=== PATIENT | female | born 1975 | race African-American/Black ===

== ENCOUNTER 2017-06-03 23:46 | Emergency (ER) | payer SELFPAY ==
[2017-06-04 01:43] LABS: #Basophils 0.1 thou/uL (0.0-0.2); #Eosinphils 0.2 thou/uL (0.0-0.7); #Lymphocytes 3.1 thou/uL (1.20-3.40); #Monocytes 0.5 thou/uL (0.11-0.59); #Neutrophils 3.3 thou/uL (1.40-6.50); %Basophils 1.4 % (0.0-1.0); %Eosinophils 2.3 % (0.0-10.0); %Lymphocytes 43.4 % (21.0-51.0); %Monocytes 6.4 % (0.0-10.0); Hematocrit 37.7 % (36.0-47.0); Mean Platelet Volume 7.4 fL (7.4-10.4); Red Blood Cell (RBC) Count 4.23 mill/uL (4.20-5.40); White Blood Cell (WBC) Count 7.1 thou/uL (4.8-10.8)
[2017-06-04 02:06] LABS: ALT (SGPT) 10 U/L (8-55); AST (SGOT) 14 U/L (5-34); Alkaline Phosphatase 66 U/L (40-150); Anion Gap 13 mmol/L (10-20); BUN (Urea Nitrogen) 12 mg/dL (7.0-18.7); Bilirubin, Total 0.2 mg/dL (0.2-1.2); CK (CPK) 114 U/L (29-168); Calc. Creatinine Clearance 0 mL/min (70-130); Calcium 8.7 mg/dL (7.8-10.44); Carbon Dioxide 25 mmol/L (22-29); Chloride 107 mmol/L (98-107); Estimated GFR-MDRD Greater than 90; Globulin 3.5 g/dL (2.4-3.5); Protein, Total 7.2 g/dL (6.0-8.3)
[2017-06-04 02:10] LABS: Troponin I Less than 0.010 ng/mL (< 0.028)
--- NOTE | 2017-06-10 15:35 | EKG ---
Test Reason : CHEST PAIN Blood Pressure : / mmHG Vent. Rate : 073 BPM Atrial Rate : 073 BPM P-R Int : 148 ms QRS Dur : 082 ms QT Int : 410 ms P-R-T Axes : 057 015 045 degrees QTc Int : 451 ms Normal sinus rhythm with sinus arrhythmia Normal ECG Confirmed by TIAN NOE D.O. ([id number]), science editor YESENIA MODI ([id number]) on 06/10/2017 3:35:25 PM Referred By: Confirmed By:TIAN NOE D.O.
== END 2017-06-04 | disposition home or self-care (01) ==
LOC: ERS 23:46
DX: F43.0 Acute stress reaction (principal); J45.909 Unspecified asthma, uncomplicated; I10 Essential (primary) hypertension; F17.210 Nicotine dependence, cigarettes, uncomplicated
CPT/HCPCS: 36415; 80053; 82550; 82553; 84484; 85025; 93005

== ENCOUNTER 2017-06-30 06:48 | Outpatient (CLI) | payer OTHER, SELFPAY | END 2017-06-30 06:49 | disposition home or self-care (01) | LOC: BICMAMMO 06:48 | PROVIDERS: ATTEND Family Medicine | DX: N63.0 Unspecified lump in unspecified breast (principal) | CPT/HCPCS: 77066; G0279 ==

== ENCOUNTER 2017-08-07 12:51 | Observation (INO) | payer OTHER, SELFPAY ==
--- NOTE | 2017-08-07 13:18 | RAD ---
AP VIEW OF THE CHEST: INDICATIONS: A 41-year-old female with a history of chest pain. COMPARISON: Prior exam dated 08/13/2016. FINDINGS: The costophrenic angles are excluded. The visualized lung are clear. The cardiomediastinal silhouet te is normal. No acute osseous abnormality is evident. IMPRESSION: 1. Limitation of exam. 2. No definite acute cardiopulmonary abnormality. POS: MARIYA
[2017-08-07 13:27] LABS: Hemoglobin 13.7 g/dL (12.0-16.0); Mean Corpuscular HGB CONC 32.9 g/dL (32.0-36.0); Mean Corpuscular Hemoglobin 28.6 pg (27.0-31.0); Mean Corpuscular Volume 86.7 fl (81.0-99.0); Mean Platelet Volume 7.6 fL (7.4-10.4); Platelet Count 255 thou/uL (130-400); RBC Distribution Width 12.5 % (11.5-14.5); Red Blood Cell (RBC) Count 4.79 mill/uL (4.20-5.40); White Blood Cell (WBC) Count 5.4 thou/uL (4.8-10.8)
[2017-08-07 13:45] LABS: Lymphocytes 49 % (21-51); MDiff Complete? YES; Monocytes 6 % (0-10); Neutrophil 45 % (42-75); PLT Morphology Comment Appears Adequate
[2017-08-07 13:53] LABS: CKMB 0.5 ng/mL (0-6.6); Troponin I Less than 0.010 ng/mL (< 0.028)
[2017-08-07 13:54] LABS: ALT (SGPT) 7 U/L (8-55); AST (SGOT) 15 U/L (5-34); Albumin 4.1 g/dL (3.5-5.0); Alkaline Phosphatase 55 U/L (40-150); Anion Gap 11 mmol/L (10-20); BUN (Urea Nitrogen) 13 mg/dL (7.0-18.7); Bilirubin, Total 0.3 mg/dL (0.2-1.2); CK (CPK) 121 U/L (29-168); Calc. Creatinine Clearance 0 mL/min (70-130); Calcium 9.5 mg/dL (7.8-10.44); Carbon Dioxide 29 mmol/L (22-29); Chloride 100 mmol/L (98-107); Estimated GFR-MDRD 83; Globulin 3.9 g/dL (2.4-3.5); Glucose 104 mg/dL (70-105); Potassium 3.5 mmol/L (3.5-5.1); Sodium 136 mmol/L (136-145)
[2017-08-07] MEDS ORDERED: Nitroglycerin 0.4 MG TAB (25 Tab Bottle) ONE (15:37)
[2017-08-07 16:49] LABS: Troponin I 0.023 ng/mL (< 0.028)
[2017-08-07] MEDS ORDERED: Ondansetron ODT 4 MG TAB SL PRN (17:31)
[2017-08-07] MEDS ORDERED: Ondansetron HCl/PF 4 MG/2 ML Vial IVP PRN (17:31)
[2017-08-07] MEDS ORDERED: Acetaminophen 325 MG TAB PO PRN ×2 (17:31→17:48)
[2017-08-07 17:39] VITALS: BMI 37.3
[2017-08-07] MEDS ORDERED: Zolpidem Tartrate 5 MG TAB PO PRN (17:48)
[2017-08-07] MEDS ORDERED: Nitroglycerin 0.4 MG TAB (25 Tab Bottle) PO PRN (17:48)
[2017-08-07] MEDS ORDERED: Ondansetron ODT 4 MG TAB PO PRN (17:48)
[2017-08-07] MEDS ORDERED: Labetalol HCl 100 MG/20 ML VIAL SLOW IVP PRN (17:48)
[2017-08-07] MEDS ORDERED: Bisacodyl 5 MG TAB PO PRN (17:48)
[2017-08-07] MEDS ORDERED: Nicotine 14 MG PATCH TD SCH (18:00)
[2017-08-07] MEDS: HYDROcodone/Acetaminophen 5/325 mg Tablet PO PRN (18:13)
--- NOTE | 2017-08-07 19:41 | HP-2 ---
CODE STATUS: FULL. PRIMARY CARE PHYSICIAN: Sunshine Monroy D.O., [facility]. ATTENDING: Dr. Padilla RESIDENT: Magalys Márquez DO HISTORIAN: Patient. CHIEF COMPLAINT: Chest pain. HISTORY OF PRESENT ILLNESS: Patient is a 41-year-old female with past medical history of hypertensio n, hyperlipidemia, tobacco abuse, presents with chest pain, onset 30 minutes prior to arrival after h er and her were arguing. She describes chest pain as tightness and squeezing. It lasted for a couple of minutes, but then began to dull. Pain initially was 10/10 and now it is better, but sti ll there. She reports wheezing and coughing episode at that time. The patient does have a history o f asthma and reports this is not like past asthma exacerbation. The patient also reports history of panic attacks and describes this did not feel like a panic attack either. She reports that coughing makes the pain worse and pain was made better just by being in the hospital. The patient also endors es a small breast lump in her left rib cage that worsens the pain. It has been worked up on 06/30/20 17 with a negative mammogram and ultrasound. She also reports constipation that is chronic, ten-year history where she has to use multiple suppositories to have a bowel movement. In the ER, she was gi hunter nitro 0.4 mg sublingual and aspirin 325 mg. PAST MEDICAL HISTORY: Asthma, hypertension, hyperlipidemia, anxiety, and osteoarthritis. PAST SURGICAL HISTORY: Left ACL repair and recent dental surgery, 2 days ago. ALLERGIES: No known drug allergies. MEDICATIONS: 1. Amoxicillin 500 mg t.i.d. 2. Pana 5/325 mg q.4 h. p.r.n. 3. HCTZ 12.5 mg daily. 4. Ambien 5 mg at bedtime. 5. Suppositories, unknown dosages or names. FAMILY HISTORY: A sister with diabetes. SOCIAL HISTORY: This patient is a smoker. She smokes 2 packs per day for the last 20 years. Denies alcohol and drug use. REVIEW OF SYSTEMS: A 12 point review of systems performed and found to be positive, unless otherwise mentioned in the HPI. Other pertinent negatives and positives listed below. Negative for shortness of breath. Negative for nausea, vomiting. Negative for palpitations. Negative for abdominal pain. Admits to cough, chest pain, and anxiety. Negative for recent illnesses including fever, chills, s ore throat, rhinorrhea and nasal congestion. PHYSICAL EXAMINATION: VITAL SIGNS: Blood pressure 142/101, pulse 77, respiratory rate 18, T-max 98.4, pulse ox 99% on room air. Current weight 115.67 kilograms. GENERAL: The patient is alert and oriented x4, in no acute distress, well-developed, well-nourished, obese, and appropriately interactive. EYES: PERRLA. EOMI. ENT: Recent tooth infection evident in oropharynx, otherwise normal. NECK: Supple, without lymphadenopathy, thyromegaly or bruit. CARDIOVASCULAR: Regular rate and rhythm, no murmurs, 2+ radial pulses, 2+ pedal pulses. Patient newton s have mild tenderness to palpation in left chest area. RESPIRATORY: Normal effort, no retractions, clear to auscultation bilaterally. SKIN: Warm and dry. No cyanosis. Does have a small nodule about 2-4 mm in size in the left rib cag e area, likely lipoma. ABDOMEN: Soft, nontender, bowel sounds positive. No mass or distention. EXTREMITIES: No clubbing, cyanosis or edema. MUSCULOSKELETAL: Structure within normal limits, tone within normal limits. NEUROLOGIC: No focal deficits. PSYCHIATRIC: Appropriate. CURRENT LABORATORY DATA: CBC: 5.4, 13.7, 41.5, 255. CMP: 136, 3.5, 100, 29, 13, 0.91, 104, GFR 83, calcium 9.5, total protein 8.0, albumin 4.1, AST 15, ALT 7, alkaline phosphatase 55, total bilirubin 0.3. CK is 121, CK-MB 0.5, troponin less than 0.010. EKG shows normal sinus rhythm. Chest x-ray reveals no acute findings. ASSESSMENT AND PLAN: 1. Atypical chest pain. The patient has a heart score of 2. We will trend troponins and with risk factors including smoking history, hypertension, hyperlipidemia, and obesity, we will do treadmill st ress test. We will give nitro p.r.n. We will try GI cocktail. We will assess for other risk factor s with A1c, TSH, magnesium and phosphatase. 2. Constipation, chronic. We will give Colace b.i.d., lactulose p.r.n. The patient will need to fo llow up outpatient to further evaluate this. 3. Hypertension. We will continue hydrochlorothiazide 12.5 mg daily. Patient did take medication t his morning and continues to have high blood pressure. We will continue to evaluate and if consisten tly elevated, may need to increase to b.i.d. dosing. IV labetalol p.r.n. 4. Hyperlipidemia. The patient reports she has been diagnosed with this but is not on any medicatio n. We will get a fasting lipid panel to evaluate. 5. Tobacco abuse. We will give nicotine patch. DISPOSITION AND LENGTH OF HOSPITAL STAY: 1-2 days. Symptomatic medications will be provided. History and physical exam as well as management was discussed with Dr. Padilla.
[2017-08-07 19:45] LABS: Hemoglobin A1c 5.2 % (4.0-6.0)
[2017-08-07 19:56] LABS: Troponin I Less than 0.010 ng/mL (< 0.028)
[2017-08-07] MEDS ORDERED: Lidocaine 2% Viscous Solution 10 ML, Aluminum & Magnesium Hydroxide 30 ML SSW SCH ×2 (20:00)
[2017-08-07] MEDS: Docusate 100 MG CAP PO SCH (20:26)
[2017-08-07] MEDS: AMOXicillin 250 MG CAP PO SCH (20:26)
[2017-08-07] MEDS: Ibuprofen 600 MG TAB PO PRN (20:33)
[2017-08-07] MEDS ORDERED: Zolpidem Tartrate 5 MG TAB PO SCH (21:00)
[2017-08-08] MEDS: HYDROcodone/Acetaminophen 5/325 mg Tablet PO PRN ×2 (03:06→09:47)
[2017-08-08] MEDS: Ibuprofen 600 MG TAB PO PRN (05:17)
[2017-08-08 06:18] LABS: Cardiac Risk 4.5 (Less than 4.5)
--- NOTE | 2017-08-08 06:29 | PDOC.FM ---
- Subjective Subjective: Patient is lying in bed comfortably. Reports no chest pain. No acute events overnight. Patient reports she wants to quit smoking using nicotine patches. - Objective MAR Reviewed: Yes Vital Signs & Weight: Vital Signs (12 hours) Temp Pulse Resp BP BP Pulse Ox 08/08/17 03:06 98.6 F 74 14 150/99 H 99 08/08/17 03:05 98.6 F 74 14 150/99 H 99 08/07/17 19:23 98.7 F 71 15 136/90 99 08/07/17 19:10 98.7 F 71 15 Weight Weight 111.244 kg I&O: 08/06/17 08/07/17 08/08/17 06:59 06:59 06:59 Intake Total 360 Balance 360 Result Diagrams: 08/07/17 13:06 08/07/17 13:06 <Magalys Márquez - Last Filed: 08/08/17 08:45> - Objective Vital Signs & Weight: Vital Signs (12 hours) Temp Pulse Resp BP BP Pulse Ox 08/08/17 08:04 98.3 F 62 16 119/79 98 08/08/17 08:00 98.3 F 62 16 08/08/17 03:06 98.6 F 74 14 150/99 H 99 08/08/17 03:05 98.6 F 74 14 150/99 H 99 Weight Weight 111.244 kg I&O: 08/07/17 08/08/17 08/09/17 06:59 06:59 06:59 Intake Total 360 Balance 360 Result Diagrams: 08/07/17 13:06 08/07/17 13:06 <Tra Covarrubias - Last Filed: 08/08/17 10:17> Phys Exam - Physical Examination Constitutional: NAD HEENT: moist MMs Respiratory: no wheezing, no rales, no rhonchi, clear to auscultation bilateral Cardiovascular: RRR, no significant murmur Gastrointestinal: soft, non-tender Musculoskeletal: no edema, pulses present Psychiatric: normal affect, A&O x 3 <Magalys Márquez - Last Filed: 08/08/17 08:45> Dx/Plan (1) Atypical chest pain Code(s): R07.89 - OTHER CHEST PAIN Status: Acute (2) HTN (hypertension) Code(s): I10 - ESSENTIAL (PRIMARY) HYPERTENSION Status: Acute (3) Constipation Code(s): K59.00 - CONSTIPATION, UNSPECIFIED Status: Acute (4) Tobacco abuse Code(s): Z72.0 - TOBACCO USE Status: Acute (5) Asthma Code(s): J45.909 - UNSPECIFIED ASTHMA, UNCOMPLICATED Status: Acute (6) Anxiety Code(s): F41.9 - ANXIETY DISORDER, UNSPECIFIED Status: Acute (7) Insomnia Code(s): G47.00 - INSOMNIA, UNSPECIFIED Status: Acute (8) Other dental procedure status Code(s): Z98.818 - OTHER DENTAL PROCEDURE STATUS Status: Acute - Plan Plan: Atypical Chest Pain - stress this morning - cardiac enzymes negative x3 - likely related to anxiety - no need for statin therapy with ASCVD risk of 6.1% - d/c home if negative stress HTN - continue home HCTZ and monitor - IV Labetalol for SBP > 180 Anxiety - patient reports normally well controlled with this being a rare event - not on any meds - educated on healthy coping habits for stress Constipation - Colace BID - prn Lactulose Recent Tooth Extraction - Continue Amoxicillin Asthma - ProAir prn Tobacco Abuse - counseled on cessation - will prescribe nicotine patches at discharge with follow up in 1 month for tobacco cessation follow up <Magalys Márquez - Last Filed: 08/08/17 08:45> Attending Addendum - Attending Addendum I personally evaluated the patient and discussed the management with Dr. Márquez I agree with the History, Examination, Assessment and Plan documented above with any addition or exceptions noted below. Will follow up with exercise ECG stress test this morning, HEART score of 2, low risk. Plan to discharge home if normal. <Tra Covarrubias - Last Filed: 08/08/17 10:17>
[2017-08-08] MEDS ORDERED: Hydrochlorothiazide 25 MG TAB PO SCH (09:00)
[2017-08-08] MEDS ORDERED: PROVENTIL INHALER 6.7 G (200 INHALATIONS) INH SCH ×2 (09:00→10:30)
[2017-08-08] MEDS ORDERED: Aspirin 325 MG TAB PO SCH (09:00)
[2017-08-08] MEDS: AMOXicillin 250 MG CAP PO SCH (09:45)
[2017-08-08] MEDS: Docusate 100 MG CAP PO SCH (09:46)
[2017-08-08 12:05] VITALS: BP 125/78; TEMP 98.2
== END 2017-08-08 13:07 | disposition home or self-care (01) ==
LOC: ERS 12:51 → 2SW 15:46
PROVIDERS: ADMIT Family Medicine; ATTEND Family Medicine
DX: R07.89 Other chest pain (principal); K59.09 Other constipation; I10 Essential (primary) hypertension; E78.5 Hyperlipidemia, unspecified; F17.210 Nicotine dependence, cigarettes, uncomplicated; J45.909 Unspecified asthma, uncomplicated; F41.9 Anxiety disorder, unspecified; M19.90 Unspecified osteoarthritis, unspecified site; G47.00 Insomnia, unspecified; Z79.2 Long term (current) use of antibiotics; Z79.899 Other long term (current) drug therapy; Z83.3 Family history of diabetes mellitus; Z98.890 Other specified postprocedural states
CPT/HCPCS: 36415; 71045; 80053; 80061; 82550; 82553; 83036; 84443; 84484; 85025; 93005; 93017; 94760; 99406; G0378

== ENCOUNTER 2019-01-09 07:28 | Day surgery (SDC) | payer BC ==
[2019-01-08 15:45] VITALS: BMI 41.9
[2019-01-09] MEDS ORDERED: Fentanyl 250 MCG/5 ML VIAL ONE (07:34)
[2019-01-09] MEDS ORDERED: Lidocaine 4% Topical Sol 50 ML BOT ONE (07:34)
[2019-01-09 08:29] LABS: BHCG - Serum Negative (NEGATIVE); Pregs Control Background? CLEAR/WHITE (CLR/WHITE); Pregs Control Bar Appear? YES (CONTROL BAR)
[2019-01-09] MEDS ORDERED: Labetalol HCl 100 MG/20 ML VIAL ONE ×2 (09:17→16:02)
[2019-01-09] MEDS ORDERED: Fentanyl 100 MCG/2 ML VIAL ONE ×2 (09:17→10:15)
[2019-01-09] MEDS ORDERED: hydrALAZINE 20 MG/ML VIAL ONE (09:43)
[2019-01-09] MEDS ORDERED: Morphine 4 MG/ML VIAL ONE (10:49)
[2019-01-09] MEDS ORDERED: Morphine 2 MG/ML SYRINGE ONE (11:02)
[2019-01-09] MEDS ORDERED: Hydrocodone-Acetamin 15 ML UDCUP ONE (11:32)
[2019-01-09] MEDS ORDERED: Promethazine HCl 25 MG/ML VIAL ONE ×3 (11:40→12:26)
[2019-01-09] MEDS ORDERED: Succinylcholine Chloride 20 MG/ML 10 ml SYRINGE FS ONE (16:02)
[2019-01-09] MEDS ORDERED: Dexamethasone 20 MG/5 ML VIAL ONE (16:02)
[2019-01-09] MEDS ORDERED: Lidocaine 1% PF 5 ML VIAL ONE (16:02)
[2019-01-09] MEDS ORDERED: Ondansetron PF 4 MG/2 ML Vial ONE (16:02)
[2019-01-09] MEDS ORDERED: PROPOFOL 200 MG/20 ML VIAL ONE (16:02)
--- NOTE | 2019-01-10 10:29 | OP ---
DATE OF PROCEDURE: 01/09/2019 PREOPERATIVE DIAGNOSES: 1. Chronic adenotonsillitis. 2. Adenotonsillar hypertrophy. POSTOPERATIVE DIAGNOSES: 1. Chronic adenotonsillitis. 2. Adenotonsillar hypertrophy. PROCEDURES PERFORMED: Tonsillectomy and adenoidectomy. ESTIMATED BLOOD LOSS: 0 mL. COMPLICATIONS: None. ANESTHESIA: GETA. PROCEDURE IN DETAIL: After consent was obtained, the patient was identified, brought to the operating room, and placed on the operating table in the supine position. General endotracheal anesthesia and intravenous access were obtained and we proceeded with positioning the patient for oropharyngeal surgery. Oropharyngeal exposure was obtained with a Aicha-Jeevan mouth gag after a head drape was placed and secured with a towel clip. The Aicha-Jeevan mouth gag was then suspended from the Schneider tray and palatal elevation was achieved with a red rubber catheter. The right tonsil was addressed first. We used a curved Allis to grasp the tonsil and retract it medially as an anterior pillar incision was made. The retrotonsillar fascial plane was then established and blunt dissection was performed with the suction cautery. Blood vessels were anticipated, identified, and cauterized as they were encountered. Ultimately, dissection was carried to the posterior tonsillar pillar mucosa which was incised hemostatically, as well as the base of tongue connection. The tonsil was then passed off as a specimen and bleeding points within the tonsillar bed were cauterized under direct visualization. We subsequently turned our attention to the contralateral side, where using a similar technique, a near identical procedure was performed. Again, the tonsil was grasped and retracted medially with a curved Allis. The retrotonsillar fascial plane was established and while the anterior pillar was retracted medially. The hemostatic blunt dissection of the tonsil with a suction cautery was performed with blood vessels anticipated, identified, and cauterized as they were encountered. Again, dissection continued to the base of tongue and posterior tonsillar pillar mucosa which was incised in a hemostatic fashion. The tonsillar beds were then carefully inspected and bleeding points were identified and cauterized with a suction cautery. After this portion of the procedure, hemostasis was completely obtained. Under direct mirror visualization, we visualized the adenoid pad. Under direct mirror visualization, we removed the bulk of the adenoid tissue with the adenoid curette. We then packed the nasopharynx for an appropriate period of time with [id number] tonsillar sponges. After a period of observation, we removed the pack. Under indirect mirror visualization, we obtained hemostasis and vaporization of residual adenoid tissue with electrocautery. The patient's oral cavity was copiously irrigated with iced saline and subsequently suctioned. After completion of the procedure, the nasal cavity and oropharynx were irrigated and suctioned as were the gastric contents. The patient was then awakened and transferred to the recovery room where the patient remained in stable condition prior to discharge to Day Stay. Job ID: [id number]
== END 2019-01-09 13:36 | disposition home or self-care (01) ==
LOC: SDC 07:28
PROVIDERS: ATTEND Otolaryngology Plastic Surgery within the Head & Neck
PROC: 0CTPXZZ Resection of Tonsils, External Approach (ICD-10-PCS; principal; 2019-01-09)
PROC: 0CTQXZZ Resection of Adenoids, External Approach (ICD-10-PCS; principal; 2019-01-09)
DX: J35.03 Chronic tonsillitis and adenoiditis (principal); I10 Essential (primary) hypertension; Z87.891 Personal history of nicotine dependence; Z79.899 Other long term (current) drug therapy; Z98.890 Other specified postprocedural states
CPT/HCPCS: 84703; 85014; 88304; J0131; J0360; J1100; J2001; J2270; J2405; J2550; J2704; J3010

== ENCOUNTER 2023-11-08 05:33 | Inpatient (IN) | payer OTHER ==
[2023-11-08] MEDS ORDERED: Lidocaine 1% w/Epinephrine 1:100K 20 ML VIAL ONE (06:28)
[2023-11-08] MEDS ORDERED: Cephalexin 250 MG CAP ONE (06:28)
[2023-11-08] MEDS ORDERED: Acetaminophen 500 MG TAB ONE (06:28)
[2023-11-08] MEDS ORDERED: Bacitracin 1 PK ONE (06:28)
[2023-11-08] MEDS ORDERED: Boostrix 0.5 ML (Tdap) VIAL (>/=7 yrs of age) ONE (06:29)
[2023-11-08] MEDS ORDERED: Sodium Chloride 0.9% 100 ML ONE ×2 (08:49→13:57)
[2023-11-08] MEDS ORDERED: CEFAZOLIN 2 GM VIAL ONE ×2 (08:49→13:56)
[2023-11-08 09:03] LABS: #Basophils Less than 0.03 10x3/uL (0.0-0.2); %Basophils 0.2 % (0.0-1.0); %Eosinophils 0.4 % (0.0-10.0); %Lymphocytes 26.6 % (21.0-51.0); %Monocytes 6.2 % (0.0-10.0); %Neutrophils 66.3 % (42.0-75.0); Hematocrit 39.2 % (36.0-47.0); Hemoglobin 13.4 g/dL (12.0-16.0); Mean Corpuscular HGB CONC 34.2 g/dL (32.0-36.0); Mean Corpuscular Hemoglobin 28.8 pg (27.0-31.0); Mean Corpuscular Volume 84.1 fL (78.0-98.0); Mean Platelet Volume 9.4 fL (7.4-10.4); Platelet Count 315 10x3/uL (130-400); RBC Distribution Width 14.8 % (11.5-14.5); Red Blood Cell (RBC) Count 4.66 mill/uL (4.20-5.40)
[2023-11-08 09:52] LABS: Globulin 4.5 g/dL (2.4-3.5)
[2023-11-08 09:56] LABS: ALT (SGPT) 27 U/L (8-55); AST (SGOT) 22 U/L (5-34); Albumin 3.6 g/dL (3.5-5.0); Alkaline Phosphatase 64 U/L (40-110); Anion Gap 20 mmol/L (10-20); BUN (Urea Nitrogen) 16 mg/dL (7.0-18.7); Calc. Creatinine Clearance 0 mL/min (70-130); Carbon Dioxide 20 mmol/L (22-29); Chloride 100 mmol/L (98-107); Estimated GFR 82; Glucose 107 mg/dL (70-105); Potassium 2.9 mmol/L (3.5-5.1); Protein, Total 8.1 g/dL (6.0-8.3); Sodium 137 mmol/L (136-145)
[2023-11-08 12:00] LABS: Bilirubin, Total 0.4 mg/dL (0.2-1.2); Calcium 9.8 mg/dL (7.8-10.44)
[2023-11-08] MEDS ORDERED: fentaNYL PF 100 MCG/2 ML SYRINGE ONE ×3 (16:44→19:58)
[2023-11-08] MEDS ORDERED: Midazolam HCl 2 mg/2 ml Vial ONE (16:44)
[2023-11-08] MEDS ORDERED: Lidocaine 1% PF 5 ML VIAL ONE (16:44)
[2023-11-08] MEDS ORDERED: Dexamethasone 4 mg/ml Vial ONE (16:44)
[2023-11-08] MEDS ORDERED: Ketorolac Tromethamine 30 MG (1 mL) VIAL ONE (16:44)
[2023-11-08] MEDS ORDERED: PROPOFOL 20 ML ONE (16:44)
[2023-11-08] MEDS ORDERED: Ondansetron PF 4 MG/2 ML Vial ONE (16:44)
[2023-11-08] MEDS ORDERED: Rocuronium Bromide 10 MG/ML (10ML VIAL) ONE (16:46)
[2023-11-08] MEDS ORDERED: Bupivacaine PF 0.5% 30 ML VIAL ONE (16:47)
[2023-11-08] MEDS ORDERED: Bacitracin Zinc Ointment 30 gm TUBE ONE (16:47)
[2023-11-08] MEDS ORDERED: Ondansetron PF 4 MG/2 ML Vial IVP PRN (16:53)
[2023-11-08] MEDS ORDERED: Milk Of Magnesia 30 ML UDCUP PO PRN (16:53)
[2023-11-08] MEDS ORDERED: traMADol HCl 50 MG TAB PO PRN (16:53)
[2023-11-08] MEDS ORDERED: Acetaminophen 325 MG TAB PO PRN (16:53)
[2023-11-08] MEDS ORDERED: Promethazine HCl 25 MG/ML VIAL IM PRN ×2 (16:53→19:49)
[2023-11-08] MEDS ORDERED: fentaNYL 50 mcg/mL 1 mL Vial SLOW IVP PRN (16:53)
[2023-11-08] MEDS ORDERED: TETANUS, DIPHTHERIA TOX,ADULT (TDVAX) 0.5 ML VIAL IM ONE (16:53)
[2023-11-08] MEDS ORDERED: Bisacodyl 10 MG SUPP PR PRN (16:53)
[2023-11-08] MEDS ORDERED: Meperidine HCl/PF 25 MG (1 mL) VIAL IM PRN (16:57)
[2023-11-08] MEDS ORDERED: RENALLY ADJUST ABX FS PRN (17:00)
[2023-11-08] MEDS ORDERED: SUCCINYLCHOLINE/SOD CL,ISO/PF 200 MG/10 ML SYRINGE FS ONE (17:17)
[2023-11-08] MEDS ORDERED: Heparin 10,000 UNITS/ 10 ML VIAL ONE (17:50)
[2023-11-08] MEDS ORDERED: Hetastarch 6% 500 ML 0 ML ONE (17:50)
[2023-11-08] MEDS ORDERED: Lidocaine 2% PF 5 ML VIAL ONE (17:51)
[2023-11-08] MEDS ORDERED: SUGAMMADEX SODIUM 200 MG/2 ML VIAL ONE (19:00)
[2023-11-08] MEDS ORDERED: Ondansetron HCl/PF 4 MG/2 ML Vial IVP PRN (19:49)
[2023-11-08] MEDS: Acetaminophen/Codeine 30-300mg Tablet PO PRN (21:38)
[2023-11-08] MEDS: Aspirin 81 mg Enteric Coated Tablet PO SCH (21:39)
[2023-11-08] MEDS: CEFAZOLIN 2 GM in Sodium Chloride 0.9% 100 ML IVPB SCH (21:39)
[2023-11-09] MEDS: HYDROcodone/Acetaminophen 5/325 mg Tablet PO PRN (00:56)
[2023-11-09] MEDS: Morphine 4 MG/ML VIAL SLOW IVP PRN (12:43)
[2023-11-09] MEDS: Potassium Chloride 20 MEQ TAB PO SCH ×2 (17:09→18:45)
[2023-11-09] MEDS ORDERED: Potassium Chloride 20 MEQ TAB PO SCH (18:00)
[2023-11-09 19:42] LABS: Anion Gap 14 mmol/L (10-20); BUN (Urea Nitrogen) 10 mg/dL (7.0-18.7); Calc. Creatinine Clearance 0 mL/min (70-130); Calcium 8.6 mg/dL (7.8-10.44); Carbon Dioxide 23 mmol/L (22-29); Chloride 104 mmol/L (98-107); Estimated GFR 82; Glucose 131 mg/dL (70-105); Potassium 3.2 mmol/L (3.5-5.1); Sodium 138 mmol/L (136-145)
[2023-11-10 04:05] VITALS: TEMP 98.2
[2023-11-10 07:38] LABS: Anion Gap 14 mmol/L (10-20); BUN (Urea Nitrogen) 10 mg/dL (7.0-18.7); Calc. Creatinine Clearance 0 mL/min (70-130); Calcium 8.7 mg/dL (7.8-10.44); Carbon Dioxide 25 mmol/L (22-29); Chloride 105 mmol/L (98-107); Estimated GFR 92; Glucose 106 mg/dL (70-105); Potassium 3.2 mmol/L (3.5-5.1); Sodium 141 mmol/L (136-145)
[2023-11-10 08:14] VITALS: BP 141/85
[2023-11-10] MEDS: Potassium Chloride 20 MEQ TAB PO SCH ×2 (08:25→08:28)
[2023-11-10 11:00] LABS: Anion Gap 14 mmol/L (10-20); BUN (Urea Nitrogen) 10 mg/dL (7.0-18.7); Calc. Creatinine Clearance 0 mL/min (70-130); Calcium 8.7 mg/dL (7.8-10.44); Carbon Dioxide 24 mmol/L (22-29); Chloride 105 mmol/L (98-107); Estimated GFR 96; Glucose 92 mg/dL (70-105); Potassium 3.6 mmol/L (3.5-5.1); Sodium 139 mmol/L (136-145)
== END 2023-11-10 13:45 | disposition home or self-care (01) | DRG 571 ==
LOC: ERS 05:33 → SDC 10:42 → MSONC 16:57
PROVIDERS: ADMIT Orthopaedic Surgery Hand Surgery; ATTEND Orthopaedic Surgery Hand Surgery
PROC: 0JBH0ZZ Excision of Left Lower Arm Subcutaneous Tissue and Fascia, Open Approach (ICD-10-PCS; principal; 2023-11-08)
PROC: 01N50ZZ Release Median Nerve, Open Approach (ICD-10-PCS; 2023-11-08)
PROC: 01Q50ZZ Repair Median Nerve, Open Approach (ICD-10-PCS; 2023-11-08)
PROC: 0KQB0ZZ Repair Left Lower Arm and Wrist Muscle, Open Approach (ICD-10-PCS; 2023-11-08)
PROC: 0KQD0ZZ Repair Left Hand Muscle, Open Approach (ICD-10-PCS; 2023-11-08)
DX: S61.512A Laceration without foreign body of left wrist, initial encounter (principal); S66.922A Laceration of unspecified muscle, fascia and tendon at wrist and hand level, left hand, initial encounter; S61.502A Unspecified open wound of left wrist, initial encounter; I10 Essential (primary) hypertension; K21.9 Gastro-esophageal reflux disease without esophagitis; E87.6 Hypokalemia; F17.210 Nicotine dependence, cigarettes, uncomplicated; Z98.890 Other specified postprocedural states
CPT/HCPCS: 36415; 80048; 80053; 83735; 85025; 86850; 86900; 86901; 90715; C1713; J0665; J1100; J1644; J1885; J2001; J2250; J2270; J2405; J2704; J3490

== ENCOUNTER 2024-01-29 15:31 | Outpatient (CLI) | payer OTHER | END 2024-01-29 15:32 | disposition home or self-care (01) | LOC: BICMRI 15:31 | PROVIDERS: ATTEND Orthopaedic Surgery Hand Surgery | DX: S69.91XD Unspecified injury of right wrist, hand and finger(s), subsequent encounter (principal); M24.241 Disorder of ligament, right hand ==

== ENCOUNTER 2025-04-14 05:46 | Emergency (ER) | payer OTHER ==
[2025-04-14] MEDS ORDERED: Ketorolac Tromethamine 30 MG (1 mL) VIAL ONE (06:34)
[2025-04-14 07:21] LABS: #Basophils 0.03 10x3/uL (0.0-0.2); #Eosinophils 0.26 10x3/uL (0.0-0.7); #Monocytes 0.58 10x3/uL (0.11-0.59); #Neutrophils 3.63 10x3/uL (1.40-6.50); %Basophils 0.5 % (0.0-1.0); %Eosinophils 4.1 % (0.0-10.0); %Lymphocytes 29.4 % (21.0-51.0); %Monocytes 9.1 % (0.0-10.0); %Neutrophils 56.7 % (42.0-75.0); Hematocrit 36.3 % (36.0-47.0); Hemoglobin 11.8 g/dL (12.0-16.0); Mean Corpuscular Hemoglobin 26.6 pg (27.0-31.0); Mean Corpuscular Volume 81.8 fL (78.0-98.0); Platelet Count 293 10x3/uL (130-400); Red Blood Cell (RBC) Count 4.44 mill/uL (4.20-5.40); White Blood Cell (WBC) Count 6.39 10x3/uL (4.8-10.8)
[2025-04-14 07:37] LABS: ALT (SGPT) 11 U/L (Less than 34); AST (SGOT) 17 U/L (11-34); Albumin 3.4 g/dL (3.1-4.5); Alkaline Phosphatase 73 U/L (40-110); Anion Gap 13 mmol/L (10-20); BUN (Urea Nitrogen) 14 mg/dL (7.0-18.7); Bilirubin, Total 0.3 mg/dL (0.3-1.2); Calc. Creatinine Clearance 0 mL/min (70-130); Calcium 9.0 mg/dL (7.8-10.44); Carbon Dioxide 31 mmol/L (22-29); Chloride 99 mmol/L (98-107); Globulin 4.0 g/dL (2.4-3.5); Glucose 110 mg/dL (70-105); Potassium 3.1 mmol/L (3.5-5.1); Sodium 140 mmol/L (136-145)
[2025-04-14] MEDS ORDERED: Acetaminophen 500 MG TAB ONE (08:09)
== END 2025-04-14 08:45 | disposition home or self-care (01) ==
LOC: ERS 05:46
DX: M10.9 Gout, unspecified (principal); M79.674 Pain in right toe(s); I10 Essential (primary) hypertension; F17.290 Nicotine dependence, other tobacco product, uncomplicated
CPT/HCPCS: 36415; 80053; 84550; 85025; 86141; 99283; J1885